=== PATIENT | female | born 1985 | race Caucasian/White ===

== ENCOUNTER 2016-12-05 12:35 | Outpatient (CLI) ==
[2014-10-20 15:01] VITALS: BMI 27.4
[2016-12-05 12:59] LABS: BASOPHILS # (AUTO) 0.1 K/uL (0-0.2); BASOPHILS % (AUTO) 0.4 % (0.0-3.0); EOSINOPHILS # (AUTO) 0.6 K/ul (0.0-0.7); EOSINOPHILS % (AUTO) 4.5 % (0.0-7.0); HEMATOCRIT 41.5 % (37.0-47.0); IMMATURE GRANULOCYTE % (AUTO) 0.2 % (0.0-5.0); LYMPHOCYTES # (AUTO) 3.4 K/uL (0.60-3.4); LYMPHOCYTES % (AUTO) 27.7 (10.0-50.0); MEAN CORPUSCULAR HEMOGLOBIN 29.7 pg (27.0-31.0); MEAN CORPUSCULAR HGB CONC 33.7 (31.8-35.4); MEAN CORPUSCULAR VOLUME 87.9 fl (81.0-99.0); MONOCYTES # (AUTO) 0.6 K/uL (0.4-2.0); MONOCYTES % (AUTO) 4.8 (0-10); NEUTROPHILS # (AUTO) 7.6 K/ul (2.0-6.9); NEUTROPHILS % (AUTO) 62.4; PLATELET COUNT 312 10^3/uL (140-440); RED BLOOD COUNT 4.72 10^6/ul (4.20-5.40); WHITE BLOOD COUNT 12.16 K/ul (4.6-10.2)
[2016-12-05 13:05] LABS: BILIRUBIN,URINE Negative (NEGATIVE); KETONES,URINE Negative (NEGATIVE); LEUKOCYTE ESTERASE ,URINE Negative (NEGATIVE); NITRITE,URINE Negative (NEGATIVE); PH,URINE 5.5 (5-9); PROTEIN,URINE Negative (NEGATIVE); URINE, BLOOD Negative (NEGATIVE)
[2016-12-05 13:06] LABS: ADD URINE MICROSCOPIC YES
[2016-12-05 13:19] LABS: ALBUMIN 3.7 g/dL (3.4-5.0); ANION GAP 15.6; BILIRUBIN,TOTAL 0.23 mg/dL (0.00-1.20); BUN/CREATININE RATIO 15.9; CALCIUM 9.5 mg/dL (8.2-10.2); CHOL/HDL RATIO 5.9 (4.5-5.5); CREATININE 0.88 mg/dL (0.60-1.30); POTASSIUM 4.6 mmol/L (3.5-5.10); TOTAL PROTEIN 7.4 g/dL (6.4-8.2)
[2016-12-05 13:26] LABS: BACTERIA,URINE TRACE (NOT PRESENT)
== END 2016-12-05 12:36 | disposition home or self-care (01) ==
LOC: LAB 12:35
PROVIDERS: ATTEND Family Medicine
DX: E78.1 Pure hyperglyceridemia (principal); R73.9 Hyperglycemia, unspecified; I10 Essential (primary) hypertension; F31.9 Bipolar disorder, unspecified; Z79.899 Other long term (current) drug therapy
CPT/HCPCS: 36415; 80053; 80061; 81001; 85025

== ENCOUNTER 2017-04-23 09:48 | Outpatient (CLI) ==
[2014-10-20 15:01] VITALS: BMI 27.4
--- NOTE | 2017-04-23 10:21 | CT ---
EXAM: CT Sinuses without contrast. HISTORY: Facial pressure, headache. COMPARISON: 09/13/2016. TECHNIQUE: Multiple axial images of the sinuses were obtained without intravenous contrast. Images were reformatted in the sagittal and coronal plane. FINDINGS: Maxillary sinuses: Clear. Ostiomeatal units are patent. Ethmoid sinuses: Clear. Sphenoid sinuses: Clear. Frontal sinuses: Right is clear. Left is hypoplastic. Nasal cavity: Leftward deviation of the nasal septum. Mild left middle and inferior turbinate hype rtrophy. Mastoid air cells are clear. No fracture identified. No localized soft tissue abnormality detected . IMPRESSION: 1. No evidence for sinusitis. 2. Mild leftward deviation of the nasal septum. 3. Left sided nasal turbinate hypertrophy.
[2017-04-23 10:24] LABS: BASOPHILS % (AUTO) 0.3 % (0.0-3.0); EOSINOPHILS # (AUTO) 0.4 K/ul (0.0-0.7); EOSINOPHILS % (AUTO) 2.7 % (0.0-7.0); HEMATOCRIT 41.9 % (37.0-47.0); HEMOGLOBIN 14.2 g/dl (12.0-16.0); IMMATURE GRANULOCYTE % (AUTO) 0.2 % (0.0-5.0); LYMPHOCYTES # (AUTO) 5.6 K/uL (0.60-3.4); LYMPHOCYTES % (AUTO) 39.9 (10.0-50.0); MEAN CORPUSCULAR HEMOGLOBIN 30.2 pg (27.0-31.0); MEAN CORPUSCULAR HGB CONC 33.9 (31.8-35.4); MEAN CORPUSCULAR VOLUME 89.1 fl (81.0-99.0); MONOCYTES # (AUTO) 0.7 K/uL (0.4-2.0); MONOCYTES % (AUTO) 4.9 (0-10); NEUTROPHILS # (AUTO) 7.3 K/ul (2.0-6.9); PLATELET COUNT 333 10^3/uL (140-440); WHITE BLOOD COUNT 13.98 K/ul (4.6-10.2)
[2017-04-23 10:38] LABS: ALBUMIN 3.7 g/dL (3.4-5.0); ALBUMIN/GLOBULIN RATIO 1.06; ANION GAP 12.9; BILIRUBIN,TOTAL 0.53 mg/dL (0.00-1.20); BUN/CREATININE RATIO 10.2; CALCIUM 9.6 mg/dL (8.2-10.2); CHOL/HDL RATIO 5.5 (4.5-5.5); CREATININE 0.98 mg/dL (0.60-1.30); POTASSIUM 3.9 mmol/L (3.5-5.10); TOTAL PROTEIN 7.2 g/dL (6.4-8.2)
== END 2017-04-23 09:49 | disposition home or self-care (01) ==
LOC: RAD 09:48
PROVIDERS: ATTEND Family Medicine
DX: E78.5 Hyperlipidemia, unspecified (principal); R73.9 Hyperglycemia, unspecified; E66.3 Overweight; D70.9 Neutropenia, unspecified; R51 Headache
CPT/HCPCS: 36415; 80053; 80061; 85025

== ENCOUNTER 2017-07-09 11:43 | Outpatient (CLI) ==
[2014-10-20 15:01] VITALS: BMI 27.4
[2017-07-09 12:17] LABS: BASOPHILS % (AUTO) 0.3 % (0.0-3.0); EOSINOPHILS # (AUTO) 0.6 K/ul (0.0-0.7); EOSINOPHILS % (AUTO) 5.4 % (0.0-7.0); HEMATOCRIT 40.5 % (37.0-47.0); HEMOGLOBIN 13.5 g/dl (12.0-16.0); IMMATURE GRANULOCYTE % (AUTO) 0.3 % (0.0-5.0); LYMPHOCYTES # (AUTO) 3.2 K/uL (0.60-3.4); LYMPHOCYTES % (AUTO) 27.6 (10.0-50.0); MEAN CORPUSCULAR HEMOGLOBIN 29.7 pg (27.0-31.0); MEAN CORPUSCULAR HGB CONC 33.3 (31.8-35.4); MEAN CORPUSCULAR VOLUME 89.2 fl (81.0-99.0); MONOCYTES # (AUTO) 0.4 K/uL (0.4-2.0); MONOCYTES % (AUTO) 3.3 (0-10); NEUTROPHILS # (AUTO) 7.3 K/ul (2.0-6.9); NEUTROPHILS % (AUTO) 63.1; PLATELET COUNT 316 10^3/uL (140-440); RED BLOOD COUNT 4.54 10^6/ul (4.20-5.40); WHITE BLOOD COUNT 11.52 K/ul (4.6-10.2)
[2017-07-09 12:19] LABS: BILIRUBIN,URINE Negative (NEGATIVE); KETONES,URINE Negative (NEGATIVE); LEUKOCYTE ESTERASE ,URINE Negative (NEGATIVE); NITRITE,URINE Negative (NEGATIVE); PH,URINE 5.5 (5-9); PROTEIN,URINE Negative (NEGATIVE); URINE, BLOOD 2+ (NEGATIVE)
[2017-07-09 12:34] LABS: SERUM PREGNANCY INTERNAL QC INTERNAL QC VALID
[2017-07-09 12:55] LABS: ALBUMIN 3.5 g/dL (3.4-5.0); ALBUMIN/GLOBULIN RATIO 0.92; ANION GAP 17.9; BILIRUBIN,TOTAL 0.3 mg/dL (0.00-1.20); BUN/CREATININE RATIO 10.97; CALCIUM 9.3 mg/dL (8.2-10.2); CREATININE 0.82 mg/dL (0.60-1.30); POTASSIUM 3.9 mmol/L (3.5-5.10); TOTAL PROTEIN 7.3 g/dL (6.4-8.2)
[2017-07-09 12:57] LABS: ADD URINE MICROSCOPIC YES
== END 2017-07-09 11:44 | disposition home or self-care (01) ==
LOC: LAB 11:43
PROVIDERS: ATTEND Family Medicine
DX: E78.5 Hyperlipidemia, unspecified (principal); R73.9 Hyperglycemia, unspecified; R63.5 Abnormal weight gain; N92.1 Excessive and frequent menstruation with irregular cycle
CPT/HCPCS: 36415; 80053; 81001; 84439; 84443; 84703; 85025

== ENCOUNTER 2017-07-22 13:40 | Outpatient (CLI) ==
[2014-10-20 15:01] VITALS: BMI 27.4
--- NOTE | 2017-07-22 15:34 | US ---
EXAM: Pelvic ultrasound complete. Ultrasound transvaginal nonobstetrical. HISTORY: Uterine bleeding. COMPARISON: 06/26/2015. TECHNIQUE: Multiple lopez scale and color Doppler images with transabdominal and transvaginal probes. FINDINGS: Transvaginal examination was performed for better delineation of the anatomy. The uterus measures 6.6 x 4 x 4.9 cm and appears normal. Endometrial stripe measures 0.7 cm. No end ometrial fluid collections are seen. Right ovary measures 3.8 x 2.3 x 2.2 cm. Left ovary measures 2 .3 x 2.7 x 2.4 cm. Both ovaries contain small follicles. Vascular flow present in both ovaries. No pelvic fluid collections identified. IMPRESSION: Normal pelvic ultrasound.
== END 2017-07-22 13:41 | disposition home or self-care (01) ==
LOC: RAD 13:40
PROVIDERS: ATTEND Family Medicine
DX: N93.9 Abnormal uterine and vaginal bleeding, unspecified (principal); Z32.02 Encounter for pregnancy test, result negative

== ENCOUNTER 2017-11-20 14:04 | Outpatient (CLI) ==
[2014-10-20 15:01] VITALS: BMI 27.4
== END 2017-11-20 14:05 | disposition home or self-care (01) ==
LOC: LAB 14:04
PROVIDERS: ATTEND Family Medicine
DX: E78.2 Mixed hyperlipidemia (principal); R73.9 Hyperglycemia, unspecified; E66.9 Obesity, unspecified; D72.829 Elevated white blood cell count, unspecified
CPT/HCPCS: 36415; 80053; 80061; 81001; 84439; 84443; 85025

== ENCOUNTER 2018-04-20 10:08 | Outpatient (CLI) ==
[2014-10-20 15:01] VITALS: BMI 27.4
== END 2018-04-20 10:09 | disposition home or self-care (01) ==
LOC: LAB 10:08
PROVIDERS: ATTEND Family Medicine
DX: R07.9 Chest pain, unspecified (principal); E78.5 Hyperlipidemia, unspecified; F41.9 Anxiety disorder, unspecified
CPT/HCPCS: 36415; 80053; 80061; 81001; 82550; 83036; 84439; 84443; 85025; 86140; 93005; 93010